=== PATIENT | male | born 1995 | race Caucasian/White ===

== ENCOUNTER 2017-04-29 01:23 | Emergency (ER) | payer OTHER ==
[2017-04-29 01:28] VITALS: BP 130/86
== END 2017-04-29 03:38 | disposition left against medical advice (07) ==
LOC: ED 01:23
DX: Z53.21 Procedure and treatment not carried out due to patient leaving prior to being seen by health care provider (principal)

== ENCOUNTER 2018-05-01 09:33 | Emergency (ER) | payer OTHER ==
[~2018-05-01] VITALS: Ht 175.3 cm; Wt 80.3 kg
[2018-05-01 09:39] VITALS: BP 122/74; Ht 175.3 cm; Wt 80.3 kg
== END 2018-05-01 12:12 | disposition home or self-care (01) ==
LOC: ED 09:33
DX: H16.212 Exposure keratoconjunctivitis, left eye (principal)
CPT/HCPCS: 99406